=== PATIENT | male | born 1970 | race Caucasian/White ===

== ENCOUNTER 2017-01-06 14:29 | Emergency (ER) | payer OTHER ==
--- NOTE | 2017-01-06 15:23 | ED Physician Documentation ---
GI Bleed - HISTORIAN Historian: patient - HPI Stated Complaint: blood in stool Chief Complaint: Rectal Pain Onset: hours (30) Timing: sudden onset Severity: mild Further Comments: yes (Patient had an episode of bright red rectal bleeding today with BM. Patient noticed blood on the toilet paper, no on stool. No pain with defication noted. No history of hemorrhoids. Patient has had a colonoscopy done last year and was normal. Patient has a similar episode last year. Patient denies rectal intercourse. Has 1-2 loos BM daily. Has had some episodes of explosive gas and loose BM when stress some. Is usually associated with some cramping.) - Associated Symptoms Description of Stools: denies: dark stools, maroon Abdominal Pain: cramping Description of Rectal Bleed: bright red blood on paper. denies: blood mixed w/ stool, blood streaks on stool, bloody diarrhea, rectal pain Other Related Symptoms: denies: nausea, vomiting, back pain, fainting, dizziness , light-headedness - ROS CONST: no problems. denies: fever, chills - PAST HX Past History: denies: bleeding disorder, GI bleeding, hemorrhoids, peptic ulcer , rectal fistula, rectal abscess Surgeries/Procedures: none Allergies/Adverse Reactions: Allergies Allergy/AdvReac Type Severity Reaction Status Date / Time heparin Allergy Verified 01/06/17 14:48 Home Medications: Ambulatory Orders Medication Instructions Recorded NK [NK] 01/06/17 - SOCIAL HX Smoking History: non-smoker Alcohol Use: none Drug Use: none - FAMILY HX Family History: none - VITAL SIGNS Vital Signs: Vital Signs Temp Pulse Resp BP Pulse Ox 97.7 F 64 16 148/79 95 01/06/17 15:25 01/06/17 15:25 01/06/17 15:25 01/06/17 15:25 01/06/17 15:25 - REVIEWED ASSESSMENTS Nursing Assessment Reviewed: Yes Vitals Reviewed: Yes Abdominal Pain Physical Exam - Physical Exam General Appearance: no acute distress, alert NECK: normal inspection RESPIRATORY: no resp distress, chest non-tender, breath sounds normal. No: wheezes, rales, rhonchi CVS: reg rate & rhythm, heart sounds normal, equal pulses, no murmur, no gallop ABDOMEN: soft, no organomegaly, normal bowel sounds, no abdominal bruit, no distension, non-tender MALE GENITAL: normal prostate. No: bleeding RECTAL: normal exam, normal rectal tone, heme negative stool. No: black stool, blood streaked stool, decreased tone, heme positive stool, hemorrhoids, mass, tenderness BACK: normal inspection, no CVA tenderness SKIN: warm/dry, normal color NEURO: mood/affect nml, cognition normal Vital Signs: Vital Signs Temp Pulse Resp BP Pulse Ox 97.7 F 64 16 148/79 95 01/06/17 15:25 01/06/17 15:25 01/06/17 15:25 01/06/17 15:25 01/06/17 15:25 Discharge Clincal Impression: Lower GI bleeding Referrals: Mahendra Viera MD [Primary Care Provider] - 2 Days Additional Instructions: Continue to watch for blood with stools. Try to increase the fiber in your diet. If you have any further problems to let me know. Home Medications: Ambulatory Orders NK [NK] 01/06/17 Condition: Stable Disposition: 01 HOME, SELF-CARE Decision to Admit: NO Date of Decison to Admit: 01/06/17 Decision Time: 15:18
[2017-01-06 15:29] VITALS: BP 148/79
== END 2017-01-06 15:25 | disposition home or self-care (01) ==
LOC: ED 14:29
DX: K92.1 Melena (principal)
CPT/HCPCS: 99283